=== PATIENT | female | born 1945 | race African-American/Black ===

== ENCOUNTER 2018-12-19 00:50 | Inpatient (IN) | payer MEDICARE, OTHER ==
[2018-12-19] VITALS (8 sets, daily range): BP systolic 136–156; BP diastolic 61–91
[~2018-12-19] VITALS: Ht 175.3 cm; Wt 85.3 kg
[2018-12-19] MEDS ORDERED: CLINDAMYCIN 600 MG in DEXTROSE 5% WATER 50 ML IV ONE (01:30)
[2018-12-19 01:38] LABS: CHLORIDE 107 mEq/L (98-107)
[2018-12-19 01:40] LABS: INR 1.3; PROTHROMBIN TIME 13.2 sec (9.6-11.0)
[2018-12-19] MEDS ORDERED: CLINDAMYCIN 600 MG in SODIUM CHLORIDE 0.9% 50 ML IV NR (01:45)
[2018-12-19 01:48] LABS: BASOPHILS % 0.7 % (0.0-2.0); EOSINOPHILS % 0.6 % (0.0-5.0); HEMATOCRIT. 31.5 % (36.0-48.0); HEMOGLOBIN. 10.3 g/dL (12.0-16.0); LYMPHOCYTES % 11.6 % (20.0-50.0); MEAN CORPUSCULAR HEMOGLOBIN 27.5 pg (28.0-32.0); MEAN CORPUSCULAR VOLUME 83.9 fL (81.0-99.0); MEAN PLATELET VOLUME 8.2 fl (7.4-10.4); MONOCYTES % 13.6 % (2.0-8.0); NEUTROPHILS % 73.5 % (40.0-76.0); PLATELET 212 x1000/uL (130-400); RED BLOOD CELL COUNT 3.75 mill/uL (4.2-5.4); RED CELL DISTRIBUTION WIDTH 16.5 % (11.6-14.6)
[2018-12-19] MEDS ORDERED: IPRATROPIUM/ALBUTEROL 0.5-3(2.5)MG/3ML NEB INH PRN (07:15)
[2018-12-19] MEDS ORDERED: LORAZEPAM 2MG/ML CPJ IV PRN (07:15)
[2018-12-19] MEDS ORDERED: HYDROCODONE/ACETAMINOPHEN 10/325MG TABLET PO PRN (07:15)
[2018-12-19] MEDS ORDERED: MAGNESIUM/ALUMINUM HYDROXIDE/SIMETHICONE 30ML UDC PO PRN (07:15)
[2018-12-19] MEDS ORDERED: DEXTROSE 50% WATER 50ML SYRINGE IV PRN (07:15)
[2018-12-19] MEDS ORDERED: DOCUSATE SODIUM 100MG CAPSULE PO PRN (07:15)
[2018-12-19] MEDS ORDERED: CLONIDINE 0.1MG TABLET PO PRN (07:15)
[2018-12-19] MEDS ORDERED: ONDANSETRON HCL 4MG/2ML INJ IV PRN (07:15)
[2018-12-19] MEDS ORDERED: GUAIFENESIN 200MG/10ML SUGAR FREE UDC PO PRN (07:15)
[2018-12-19] MEDS ORDERED: SODIUM BICARBONATE 4% (2.4MEQ) 5ML VIAL IV ONE (08:57)
[2018-12-19] MEDS ORDERED: HYDRALAZINE 20MG/ML VIAL IV PRN (11:30)
[2018-12-19] MEDS ORDERED: NA PHOS,M-B/NA PHOS,DI-BA ENEMA 118ML PR PRN (12:00)
[2018-12-19] MEDS: BLOOD SUGAR DIAGNOSTIC STRIP TEST SCH ×3 (12:30→21:22)
[2018-12-19] MEDS: INSULIN LISPRO 100 UNITS/ML SUBCUT SCH ×3 (13:00→21:00)
[2018-12-19] MEDS ORDERED: CEPH500C2 MT (13:44)
[2018-12-19] MEDS ORDERED: LISI-604 MT (13:49)
[2018-12-19] MEDS ORDERED: WARF7.5T22 MT (13:57)
[2018-12-19] MEDS: SODIUM CHLORIDE 0.9% INJ 3ML FLUSH IVF SCH ×2 (14:00→21:22)
[2018-12-19] MEDS ORDERED: SIMV40TA2 MT (14:02)
[2018-12-19] MEDS ORDERED: METF-416 MT (14:20)
[2018-12-19] MEDS ORDERED: FURO-151 MT (14:24)
[2018-12-19] MEDS ORDERED: COR25 MT (14:24)
[2018-12-19 17:44] LABS: CREATINE KINASE 65 IU/L (26-192)
[2018-12-19 17:45] LABS: CREATINE KINASE MB FRACTION < 1.0 ng/mL (0.5-3.6)
[2018-12-19] MEDS ORDERED: NON FORMULARY PATIENT HOME MED XX SCH (18:00)
[2018-12-19] MEDS: LISINOPRIL 20MG TABLET PO SCH (18:31)
[2018-12-19] MEDS: FUROSEMIDE 40MG TABLET PO SCH (18:31)
[2018-12-19] MEDS: CARVEDILOL 25MG TABLET PO SCH (21:23)
[2018-12-19] MEDS: ATORVASTATIN CALCIUM 20MG TABLET PO SCH (21:23)
[2018-12-20] VITALS (13 sets, daily range): BP systolic 114–158; BP diastolic 54–79
[2018-12-20 01:58] LABS: CREATINE KINASE 64 IU/L (26-192)
[2018-12-20 01:59] LABS: CREATINE KINASE MB FRACTION < 1.0 ng/mL (0.5-3.6)
[2018-12-20] MEDS: SODIUM CHLORIDE 0.9% INJ 3ML FLUSH IVF SCH ×3 (06:00→21:18)
[2018-12-20 06:56] LABS: BASOPHILS % 0.4 % (0.0-2.0); EOSINOPHILS % 1.2 % (0.0-5.0); HEMATOCRIT. 30.1 % (36.0-48.0); HEMOGLOBIN. 10.1 g/dL (12.0-16.0); LYMPHOCYTES % 14.7 % (20.0-50.0); MEAN CORPUSCULAR HEMOGLOBIN 27.8 pg (28.0-32.0); MEAN PLATELET VOLUME 7.9 fl (7.4-10.4); MONOCYTES % 11.7 % (2.0-8.0); PLATELET 203 x1000/uL (130-400); RED BLOOD CELL COUNT 3.63 mill/uL (4.2-5.4); RED CELL DISTRIBUTION WIDTH 16.2 % (11.6-14.6)
[2018-12-20] MEDS: BLOOD SUGAR DIAGNOSTIC STRIP TEST SCH ×4 (07:30→21:19)
[2018-12-20 07:33] LABS: CHLORIDE 107 mEq/L (98-107)
[2018-12-20 07:56] LABS: OPIATES URINE SCREEN NEGATIVE (NEGATIVE); PHENCYCLIDINE URINE SCREEN NEGATIVE (NEGATIVE)
[2018-12-20 07:57] LABS: *AMPHETAMINES SCREEN URINE NEGATIVE (NEGATIVE); *BARBITURATES SCREEN URINE NEGATIVE (NEGATIVE); *BENZODIAZEPINES SCREEN URINE NEGATIVE (NEGATIVE); *COCAINE SCREEN URINE NEGATIVE (NEGATIVE); CANNABINOID URINE SCREEN NEGATIVE (NEGATIVE)
[2018-12-20 07:58] LABS: LDL CHOLESTEROL 89 mg/dL (5-100)
[2018-12-20 08:00] LABS: T4 FREE 1.13 ng/dL (0.76-1.46)
[2018-12-20] MEDS: INSULIN LISPRO 100 UNITS/ML SUBCUT SCH ×4 (08:00→21:00)
[2018-12-20 08:02] LABS: HDL CHOLESTEROL 45 mg/dL (40-59)
[2018-12-20 08:13] LABS: METHADONE URINE SCREEN NEGATIVE (NEGATIVE)
[2018-12-20] MEDS: CARVEDILOL 25MG TABLET PO SCH ×2 (09:02→21:19)
[2018-12-20] MEDS: FUROSEMIDE 40MG TABLET PO SCH (09:02)
[2018-12-20] MEDS: METFORMIN HCL 500MG TABLET PO SCH (09:02)
[2018-12-20] MEDS: LISINOPRIL 20MG TABLET PO SCH (09:03)
[2018-12-20 11:43] LABS: T4 FREE 1.13 ng/dL (0.76-1.46)
[2018-12-20 16:44] LABS: CREATINE KINASE 70 IU/L (26-192)
[2018-12-20 16:46] LABS: CREATINE KINASE MB FRACTION < 1.0 ng/mL (0.5-3.6)
[2018-12-20] MEDS: ATORVASTATIN CALCIUM 20MG TABLET PO SCH (21:18)
[2018-12-20 23:36] LABS: CREATINE KINASE 68 IU/L (26-192)
[2018-12-20 23:37] LABS: CREATINE KINASE MB FRACTION < 1.0 ng/mL (0.5-3.6)
[2018-12-21] VITALS (13 sets, daily range): BP systolic 106–158; BP diastolic 58–79
[2018-12-21] MEDS: DIPHENHYDRAMINE 50MG/ML VIAL IV PRN (02:11)
[2018-12-21] MEDS: SODIUM CHLORIDE 0.9% INJ 3ML FLUSH IVF SCH ×3 (05:54→20:59)
[2018-12-21 06:28] LABS: BASOPHILS % 0.5 % (0.0-2.0); EOSINOPHILS % 1.7 % (0.0-5.0); HEMATOCRIT. 33.5 % (36.0-48.0); HEMOGLOBIN. 11.1 g/dL (12.0-16.0); LYMPHOCYTES % 15.8 % (20.0-50.0); MEAN CORPUSCULAR HEMOGLOBIN 27.2 pg (28.0-32.0); MEAN CORPUSCULAR VOLUME 82.5 fL (81.0-99.0); MEAN PLATELET VOLUME 7.9 fl (7.4-10.4); MONOCYTES % 11.9 % (2.0-8.0); NEUTROPHILS % 70.1 % (40.0-76.0); PLATELET 254 x1000/uL (130-400); RED BLOOD CELL COUNT 4.06 mill/uL (4.2-5.4); RED CELL DISTRIBUTION WIDTH 15.6 % (11.6-14.6)
[2018-12-21 06:30] LABS: CHLORIDE 104 mEq/L (98-107)
[2018-12-21 07:01] LABS: CREATINE KINASE 79 IU/L (26-192)
[2018-12-21 07:03] LABS: CREATINE KINASE MB FRACTION 1.2 ng/mL (0.5-3.6)
[2018-12-21] MEDS: BLOOD SUGAR DIAGNOSTIC STRIP TEST SCH ×4 (07:29→20:58)
[2018-12-21] MEDS: INSULIN LISPRO 100 UNITS/ML SUBCUT SCH ×4 (08:00→20:58)
[2018-12-21] MEDS: LISINOPRIL 20MG TABLET PO SCH (08:57)
[2018-12-21] MEDS: METFORMIN HCL 500MG TABLET PO SCH (08:57)
[2018-12-21] MEDS: FUROSEMIDE 40MG TABLET PO SCH (08:57)
[2018-12-21] MEDS: CARVEDILOL 25MG TABLET PO SCH ×2 (08:58→20:58)
[2018-12-21] MEDS: ENOXAPARIN 100MG/ML SYR SUBCUT SCH ×2 (12:26→21:00)
[2018-12-21 12:27] LABS: INR 1.5; PROTHROMBIN TIME 15.4 sec (9.6-11.0)
[2018-12-21] MEDS: HYDROMORPHONE HCL/PF 2MG/ML CPJ IV PRN (14:16)
[2018-12-21] MEDS ORDERED: WARFARIN SODIUM 2.5MG TABLET PO SCH (18:00)
[2018-12-21] MEDS: ATORVASTATIN CALCIUM 20MG TABLET PO SCH (20:58)
[2018-12-22] VITALS (12 sets, daily range): BP systolic 92–151; BP diastolic 55–95
[2018-12-22] MEDS: ACETAMINOPHEN 325MG TABLET PO PRN ×2 (01:15→21:40)
[2018-12-22] MEDS: HYDROMORPHONE HCL/PF 2MG/ML CPJ IV PRN (03:21)
[2018-12-22] MEDS: SODIUM CHLORIDE 0.9% INJ 3ML FLUSH IVF SCH ×3 (06:00→21:45)
[2018-12-22 06:19] LABS: HEMATOCRIT. 32.3 % (36.0-48.0); HEMOGLOBIN. 10.9 g/dL (12.0-16.0); MEAN CORPUSCULAR HEMOGLOBIN 27.7 pg (28.0-32.0); MEAN CORPUSCULAR VOLUME 82.2 fL (81.0-99.0); PLATELET 270 x1000/uL (130-400); RED BLOOD CELL COUNT 3.93 mill/uL (4.2-5.4); RED CELL DISTRIBUTION WIDTH 15.9 % (11.6-14.6)
[2018-12-22 06:23] LABS: INR 1.7
[2018-12-22 06:30] LABS: CHLORIDE 104 mEq/L (98-107)
[2018-12-22] MEDS: INSULIN LISPRO 100 UNITS/ML SUBCUT SCH ×4 (08:00→21:00)
[2018-12-22 08:11] LABS: PLATELET ESTIMATE NORMAL
[2018-12-22] MEDS: BLOOD SUGAR DIAGNOSTIC STRIP TEST SCH ×4 (08:23→21:41)
[2018-12-22] MEDS: FUROSEMIDE 40MG TABLET PO SCH (09:00)
[2018-12-22] MEDS: LISINOPRIL 20MG TABLET PO SCH (09:00)
[2018-12-22] MEDS ORDERED: WARFARIN SODIUM 2.5MG TABLET PO ONE (09:00)
[2018-12-22] MEDS: METFORMIN HCL 500MG TABLET PO SCH (09:00)
[2018-12-22] MEDS: ENOXAPARIN 100MG/ML SYR SUBCUT SCH ×2 (10:00→23:23)
[2018-12-22] MEDS: CARVEDILOL 25MG TABLET PO SCH ×2 (10:22→21:40)
[2018-12-22] MEDS ORDERED: KCL 20MEQ/100ML PREMIX 100 ML IV NR (11:30)
[2018-12-22] MEDS ORDERED: WARFARIN SODIUM 4MG TABLET PO NR (18:00)
[2018-12-22] MEDS: ATORVASTATIN CALCIUM 20MG TABLET PO SCH (21:40)
[2018-12-23] VITALS (12 sets, daily range): BP systolic 95–137; BP diastolic 46–106
[2018-12-23 05:50] LABS: PROTHROMBIN TIME 19.9 sec (9.6-11.0)
[2018-12-23 06:01] LABS: HEMATOCRIT. 33.1 % (36.0-48.0); MEAN CORPUSCULAR HEMOGLOBIN 27.6 pg (28.0-32.0); MEAN CORPUSCULAR VOLUME 83.1 fL (81.0-99.0); MEAN PLATELET VOLUME 7.9 fl (7.4-10.4); PLATELET 269 x1000/uL (130-400); RED BLOOD CELL COUNT 3.98 mill/uL (4.2-5.4); RED CELL DISTRIBUTION WIDTH 15.8 % (11.6-14.6)
[2018-12-23 06:10] LABS: CHLORIDE 106 mEq/L (98-107)
[2018-12-23] MEDS: SODIUM CHLORIDE 0.9% INJ 3ML FLUSH IVF SCH ×3 (06:38→22:11)
[2018-12-23] MEDS: ACETAMINOPHEN 325MG TABLET PO PRN ×2 (06:53→20:24)
[2018-12-23] MEDS: BLOOD SUGAR DIAGNOSTIC STRIP TEST SCH ×4 (07:53→20:24)
[2018-12-23] MEDS: INSULIN LISPRO 100 UNITS/ML SUBCUT SCH ×4 (07:54→20:24)
[2018-12-23] MEDS: METFORMIN HCL 500MG TABLET PO SCH (08:14)
[2018-12-23] MEDS: CARVEDILOL 25MG TABLET PO SCH ×2 (08:15→20:24)
[2018-12-23] MEDS: FUROSEMIDE 40MG TABLET PO SCH (08:15)
[2018-12-23] MEDS: LISINOPRIL 20MG TABLET PO SCH (08:16)
[2018-12-23] MEDS ORDERED: POTASSIUM CHLORIDE 20MEQ/PACKET PO NR (09:00)
[2018-12-23] MEDS: ENOXAPARIN 100MG/ML SYR SUBCUT SCH ×2 (10:16→22:11)
[2018-12-23] MEDS ORDERED: WARFARIN SODIUM 4MG TABLET PO NR (18:00)
[2018-12-23] MEDS: ATORVASTATIN CALCIUM 20MG TABLET PO SCH (20:24)
[2018-12-24] VITALS (13 sets, daily range): BP systolic 93–134; BP diastolic 49–74
[2018-12-24] MEDS: DIPHENHYDRAMINE 50MG/ML VIAL IV PRN (02:25)
[2018-12-24] MEDS: HYDROMORPHONE HCL/PF 2MG/ML CPJ IV PRN ×2 (03:00→07:16)
[2018-12-24 04:16] LABS: PLATELET ESTIMATE NORMAL
[2018-12-24] MEDS: SODIUM CHLORIDE 0.9% INJ 3ML FLUSH IVF SCH ×3 (05:56→21:22)
[2018-12-24 06:07] LABS: HEMOGLOBIN. 11.2 g/dL (12.0-16.0); MEAN CORPUSCULAR HEMOGLOBIN 27.9 pg (28.0-32.0); MEAN CORPUSCULAR VOLUME 82.6 fL (81.0-99.0); MEAN PLATELET VOLUME 8.1 fl (7.4-10.4); PLATELET 298 x1000/uL (130-400); RED BLOOD CELL COUNT 3.99 mill/uL (4.2-5.4); RED CELL DISTRIBUTION WIDTH 16.2 % (11.6-14.6)
[2018-12-24 06:29] LABS: CHLORIDE 106 mEq/L (98-107)
[2018-12-24 06:36] LABS: INR 2.2; PROTHROMBIN TIME 21.8 sec (9.6-11.0)
[2018-12-24] MEDS: BLOOD SUGAR DIAGNOSTIC STRIP TEST SCH ×4 (07:30→20:09)
[2018-12-24] MEDS: INSULIN LISPRO 100 UNITS/ML SUBCUT SCH ×4 (08:00→20:10)
[2018-12-24] MEDS: LISINOPRIL 20MG TABLET PO SCH (09:00)
[2018-12-24] MEDS: METFORMIN HCL 500MG TABLET PO SCH (09:17)
[2018-12-24] MEDS: FUROSEMIDE 40MG TABLET PO SCH (09:18)
[2018-12-24] MEDS: CARVEDILOL 25MG TABLET PO SCH ×2 (09:26→20:53)
[2018-12-24] MEDS: ENOXAPARIN 100MG/ML SYR SUBCUT SCH ×2 (09:26→21:22)
[2018-12-24 11:33] LABS: PLATELET ESTIMATE NORMAL
[2018-12-24] MEDS ORDERED: WARFARIN SODIUM 4MG TABLET PO NR (18:00)
[2018-12-24] MEDS: ATORVASTATIN CALCIUM 20MG TABLET PO SCH (20:53)
[2018-12-24] MEDS: ACETAMINOPHEN 325MG TABLET PO PRN (20:54)
[2018-12-24] MEDS: DEXT 5%/0.45% NACL 1000ML 1,000 ML IV SCH (21:22)
[2018-12-25] VITALS (18 sets, daily range): BP systolic 91–142; BP diastolic 50–95
[2018-12-25] MEDS: SODIUM CHLORIDE 0.9% INJ 3ML FLUSH IVF SCH ×3 (05:11→21:28)
[2018-12-25 05:43] LABS: INR 1.9
[2018-12-25] MEDS: BLOOD SUGAR DIAGNOSTIC STRIP TEST SCH ×4 (06:51→20:30)
[2018-12-25] MEDS: INSULIN LISPRO 100 UNITS/ML SUBCUT SCH ×4 (07:20→20:30)
[2018-12-25] MEDS: FUROSEMIDE 40MG TABLET PO SCH (09:00)
[2018-12-25] MEDS: LISINOPRIL 20MG TABLET PO SCH (09:00)
[2018-12-25] MEDS: METFORMIN HCL 500MG TABLET PO SCH (09:00)
[2018-12-25] MEDS: CARVEDILOL 25MG TABLET PO SCH ×2 (09:00→20:29)
[2018-12-25] MEDS: ENOXAPARIN 100MG/ML SYR SUBCUT SCH ×2 (10:00→21:27)
[2018-12-25] MEDS ORDERED: MIDAZOLAM HCL 2 MG/2 ML VIAL ONE ×2 (10:50→11:33)
[2018-12-25] MEDS ORDERED: LIDOCAINE HCL 2% JELLY 5ML ONE (10:50)
[2018-12-25] MEDS ORDERED: FENTANYL CITRATE/PF 50MCG/ML 2ML VIAL ONE (10:50)
[2018-12-25] MEDS ORDERED: TETRACAINE/BENZOCAINE/BUTAMBEN 20 GM SPRAY MM ONE (10:51)
[2018-12-25] MEDS: DEXT 5%/0.45% NACL 1000ML 1,000 ML IV SCH (17:15)
[2018-12-25] MEDS ORDERED: WARFARIN SODIUM 3MG TABLET PO SCH (18:00)
[2018-12-25] MEDS: ACETAMINOPHEN 325MG TABLET PO PRN (18:13)
[2018-12-25] MEDS: ATORVASTATIN CALCIUM 20MG TABLET PO SCH (20:30)
[2018-12-26] VITALS (19 sets, daily range): BP systolic 104–135; BP diastolic 48–85
[2018-12-26] MEDS: ACETAMINOPHEN 325MG TABLET PO PRN (03:43)
[2018-12-26 05:14] LABS: INR 3.3; PROTHROMBIN TIME 32.3 sec (9.6-11.0)
[2018-12-26] MEDS: SODIUM CHLORIDE 0.9% INJ 3ML FLUSH IVF SCH (05:19)
[2018-12-26 05:21] LABS: HEMATOCRIT. 32.4 % (36.0-48.0); MEAN CORPUSCULAR HEMOGLOBIN 27.6 pg (28.0-32.0); MEAN CORPUSCULAR VOLUME 81.5 fL (81.0-99.0); MEAN PLATELET VOLUME 7.8 fl (7.4-10.4); PLATELET 321 x1000/uL (130-400); RED BLOOD CELL COUNT 3.97 mill/uL (4.2-5.4); RED CELL DISTRIBUTION WIDTH 16.1 % (11.6-14.6)
[2018-12-26 05:49] LABS: CHLORIDE 106 mEq/L (98-107)
[2018-12-26 07:04] LABS: PLATELET ESTIMATE NORMAL
[2018-12-26] MEDS: BLOOD SUGAR DIAGNOSTIC STRIP TEST SCH ×2 (07:30→12:27)
[2018-12-26] MEDS: METFORMIN HCL 500MG TABLET PO SCH (09:09)
[2018-12-26] MEDS: FUROSEMIDE 40MG TABLET PO SCH (09:10)
[2018-12-26] MEDS: LISINOPRIL 20MG TABLET PO SCH (09:10)
[2018-12-26] MEDS: CARVEDILOL 25MG TABLET PO SCH (09:11)
[2018-12-26] MEDS: INSULIN LISPRO 100 UNITS/ML SUBCUT SCH ×3 (09:16→13:00)
[2018-12-26] MEDS: ENOXAPARIN 100MG/ML SYR SUBCUT SCH (09:20)
[2018-12-26] MEDS ORDERED: HYDROCODONE/ACETAMINOPHEN 10/325MG TABLET PO PRN (09:30)
[2018-12-26] MEDS ORDERED: POTASSIUM CHLORIDE 20MEQ TABLET SR PO NR (10:30)
== END 2018-12-26 14:45 | DRG 64 ==
LOC: ER 00:50 → 5EST 02:40 → EDBEDREQTM 02:42 → EDBEDREQ 02:42 → ENRESERV 10:34 → UNDODISIN 12-26 14:57
PROVIDERS: ADMIT Internal Medicine; ATTEND Internal Medicine
PROC: 4A00X4Z Measurement of Central Nervous Electrical Activity, External Approach (ICD-10-PCS; 2018-12-23)
PROC: B24BZZ4 Ultrasonography of Heart with Aorta, Transesophageal (ICD-10-PCS; principal; 2018-12-25)
DX: I63.9 Cerebral infarction, unspecified (principal); G93.41 Metabolic encephalopathy; R65.10 Systemic inflammatory response syndrome (SIRS) of non-infectious origin without acute organ dysfunction; E46 Unspecified protein-calorie malnutrition; I50.42 Chronic combined systolic (congestive) and diastolic (congestive) heart failure; L03.115 Cellulitis of right lower limb; I42.9 Cardiomyopathy, unspecified; L97.919 Non-pressure chronic ulcer of unspecified part of right lower leg with unspecified severity; G81.91 Hemiplegia, unspecified affecting right dominant side; E86.0 Dehydration; E11.9 Type 2 diabetes mellitus without complications; R47.02 Dysphasia; I48.91 Unspecified atrial fibrillation; I11.0 Hypertensive heart disease with heart failure; D64.9 Anemia, unspecified; E11.51 Type 2 diabetes mellitus with diabetic peripheral angiopathy without gangrene; E78.00 Pure hypercholesterolemia, unspecified; E78.5 Hyperlipidemia, unspecified; I70.8 Atherosclerosis of other arteries; I07.1 Rheumatic tricuspid insufficiency; I25.10 Atherosclerotic heart disease of native coronary artery without angina pectoris; I27.20 Pulmonary hypertension, unspecified; R47.01 Aphasia; Z79.01 Long term (current) use of anticoagulants; Z79.84 Long term (current) use of oral hypoglycemic drugs; Z79.899 Other long term (current) drug therapy; Z95.1 Presence of aortocoronary bypass graft; Z95.2 Presence of prosthetic heart valve; Z68.27 Body mass index [BMI] 27.0-27.9, adult
CPT/HCPCS: 36415; 70551; 71045; 80048; 80061; 80305; 82550; 82553; 82962; 83036; 83605; 83721; 83880; 84439; 84443; 84484; 85379; 92610; 93005; 93306; 93312; 93880; 93923; 93970; 96365; 97110; 97162; 97530; 99291; J1170; J1200; J1650; J1815; J2250; J3010; J3480; J3490; J7040; J7042; J7050; J7060; A4315

== ENCOUNTER 2018-12-26 14:46 | Inpatient (IN) | payer MEDICARE, OTHER ==
[~2018-12-26] VITALS: Ht 175.3 cm; Wt 83.5 kg
[2018-12-26 14:46] VITALS: BP 107/52
[~2018-12-26 14:46] MED LIST: COR25 MT; FURO-151 MT; LISI-604 MT; METF-416 MT; SIMV40TA2 MT; WARF7.5T22 MT
[2018-12-26 15:00] VITALS: BP 107/52
[2018-12-26] MEDS ORDERED: BISACODYL 5MG TABLET PO PRN (16:15)
[2018-12-26] MEDS ORDERED: IPRATROPIUM/ALBUTEROL 0.5-3(2.5)MG/3ML NEB HHN PRN (16:45)
[2018-12-26] MEDS ORDERED: GUAIFENESIN 200MG TABLET PO PRN (16:45)
[2018-12-26] MEDS ORDERED: DIPHENHYDRAMINE 50MG CAPSULE PO PRN ×2 (16:45→22:45)
[2018-12-26] MEDS ORDERED: DEXTROSE 50% WATER 50ML SYRINGE IV PRN ×2 (16:45→17:00)
[2018-12-26] MEDS ORDERED: CLONIDINE 0.1MG TABLET PO PRN (16:45)
[2018-12-26] MEDS ORDERED: MAGNESIUM/ALUMINUM HYDROXIDE/SIMETHICONE 30ML UDC PO PRN (16:45)
[2018-12-26] MEDS ORDERED: HYDRALAZINE HCL 10MG TABLET PO PRN (16:56)
[2018-12-26] MEDS: DOCUSATE SODIUM 100MG CAPSULE PO SCH ×2 (17:00→18:38)
[2018-12-26] MEDS: INSULIN LISPRO 100 UNITS/ML SUBCUT SCH ×2 (17:00→21:00)
[2018-12-26] MEDS: BLOOD SUGAR DIAGNOSTIC STRIP TEST SCH ×2 (17:33→21:00)
[2018-12-26 20:00] VITALS: BP 125/67
[2018-12-26] MEDS: ATORVASTATIN CALCIUM 20MG TABLET PO SCH (20:37)
[2018-12-26] MEDS: ONDANSETRON HCL 4MG TABLET PO PRN (20:37)
[2018-12-26] MEDS: HYDROCODONE/ACETAMINOPHEN 10/325MG TABLET PO PRN (20:42)
[2018-12-26] MEDS: CARVEDILOL 25MG TABLET PO SCH (20:43)
[2018-12-26] MEDS ORDERED: NA PHOS,M-B/NA PHOS,DI-BA ENEMA 118ML PR PRN (21:00)
[2018-12-27 04:00] VITALS: BP 117/67
[2018-12-27] MEDS: HYDROCODONE/ACETAMINOPHEN 10/325MG TABLET PO PRN (04:36)
[2018-12-27] MEDS: BLOOD SUGAR DIAGNOSTIC STRIP TEST SCH ×4 (06:30→21:17)
[2018-12-27 08:00] VITALS: BP 102/66
[2018-12-27] MEDS: CARVEDILOL 25MG TABLET PO SCH ×2 (09:00→21:00)
[2018-12-27] MEDS: INSULIN LISPRO 100 UNITS/ML SUBCUT SCH ×4 (09:00→21:00)
[2018-12-27] MEDS: LISINOPRIL 20MG TABLET PO SCH (09:00)
[2018-12-27] MEDS ORDERED: METFORMIN HCL 500MG TABLET PO SCH (09:00)
[2018-12-27] MEDS: METFORMIN HCL 500MG TABLET PO SCH (10:18)
[2018-12-27] MEDS: FUROSEMIDE 40MG TABLET PO SCH (10:18)
[2018-12-27] MEDS: DOCUSATE SODIUM 100MG CAPSULE PO SCH ×3 (10:18→18:15)
[2018-12-27 13:01] LABS: INR 3.7; PROTHROMBIN TIME 36.4 sec (9.6-11.0)
[2018-12-27] MEDS: AMOXICILLIN/POTASSIUM CLAVULANATE 875/125MG TAB PO SCH ×2 (18:15→22:34)
[2018-12-27 20:00] VITALS: BP 98/60
[2018-12-27] MEDS: ATORVASTATIN CALCIUM 20MG TABLET PO SCH (21:16)
[2018-12-27] MEDS: ACETAMINOPHEN 325MG TABLET PO PRN (22:07)
[2018-12-28] MEDS: ACETAMINOPHEN 325MG TABLET PO PRN (04:01)
[2018-12-28] MEDS: BLOOD SUGAR DIAGNOSTIC STRIP TEST SCH ×4 (06:41→21:19)
[2018-12-28] MEDS: INSULIN LISPRO 100 UNITS/ML SUBCUT SCH ×4 (06:41→21:00)
[2018-12-28 06:44] LABS: INR 3.3; PROTHROMBIN TIME 32.8 sec (9.6-11.0)
[2018-12-28 08:00] VITALS: BP 106/56
[2018-12-28] MEDS: LISINOPRIL 20MG TABLET PO SCH (09:00)
[2018-12-28] MEDS: DOCUSATE SODIUM 100MG CAPSULE PO SCH ×4 (09:00→16:49)
[2018-12-28] MEDS: CARVEDILOL 25MG TABLET PO SCH ×2 (09:00→21:00)
[2018-12-28] MEDS: AMOXICILLIN/POTASSIUM CLAVULANATE 875/125MG TAB PO SCH ×2 (09:47→21:49)
[2018-12-28] MEDS: METFORMIN HCL 500MG TABLET PO SCH (09:47)
[2018-12-28] MEDS: FUROSEMIDE 40MG TABLET PO SCH (09:48)
[2018-12-28 20:00] VITALS: BP 102/62
[2018-12-28] MEDS: ATORVASTATIN CALCIUM 20MG TABLET PO SCH (21:49)
[2018-12-29] MEDS: BLOOD SUGAR DIAGNOSTIC STRIP TEST SCH ×4 (06:00→21:32)
[2018-12-29] MEDS: INSULIN LISPRO 100 UNITS/ML SUBCUT SCH ×4 (06:23→21:00)
[2018-12-29 08:00] VITALS: BP 98/64
[2018-12-29] MEDS: CARVEDILOL 25MG TABLET PO SCH (08:08)
[2018-12-29] MEDS: LISINOPRIL 20MG TABLET PO SCH (08:09)
[2018-12-29] MEDS: AMOXICILLIN/POTASSIUM CLAVULANATE 875/125MG TAB PO SCH ×2 (08:30→21:32)
[2018-12-29] MEDS: DOCUSATE SODIUM 100MG CAPSULE PO SCH ×2 (08:30→17:20)
[2018-12-29] MEDS: METFORMIN HCL 500MG TABLET PO SCH (08:30)
[2018-12-29] MEDS: FUROSEMIDE 40MG TABLET PO SCH (10:06)
[2018-12-29] MEDS: ONDANSETRON HCL 4MG TABLET PO PRN (11:06)
[2018-12-29 13:41] LABS: INR 2.2; PROTHROMBIN TIME 22.2 sec (9.6-11.0)
[2018-12-29] MEDS ORDERED: WARFARIN SODIUM 3MG TABLET PO NR (18:00)
[2018-12-29 20:00] VITALS: BP 105/73
[2018-12-29] MEDS: CARVEDILOL 12.5MG TABLET PO SCH (21:00)
[2018-12-29] MEDS: ATORVASTATIN CALCIUM 20MG TABLET PO SCH (21:32)
[2018-12-30] MEDS: ACETAMINOPHEN 325MG TABLET PO PRN (04:06)
[2018-12-30] MEDS: BLOOD SUGAR DIAGNOSTIC STRIP TEST SCH ×4 (07:20→21:25)
[2018-12-30] MEDS: INSULIN LISPRO 100 UNITS/ML SUBCUT SCH ×4 (07:20→21:00)
[2018-12-30 07:31] LABS: INR 2.2; PROTHROMBIN TIME 22.2 sec (9.6-11.0)
[2018-12-30 08:54] VITALS: BP 115/63
[2018-12-30] MEDS: CARVEDILOL 12.5MG TABLET PO SCH ×2 (09:00→21:00)
[2018-12-30] MEDS: LISINOPRIL 10MG TABLET PO SCH (10:40)
[2018-12-30] MEDS: DOCUSATE SODIUM 100MG CAPSULE PO SCH ×2 (10:40→17:00)
[2018-12-30] MEDS: FUROSEMIDE 20MG TABLET PO SCH (10:40)
[2018-12-30] MEDS: AMOXICILLIN/POTASSIUM CLAVULANATE 875/125MG TAB PO SCH ×2 (10:40→21:03)
[2018-12-30] MEDS: METFORMIN HCL 500MG TABLET PO SCH (10:40)
[2018-12-30] MEDS ORDERED: WARFARIN SODIUM 3MG TABLET PO SCH (18:00)
[2018-12-30 20:00] VITALS: BP 97/66
[2018-12-30] MEDS: ATORVASTATIN CALCIUM 20MG TABLET PO SCH (21:03)
[2018-12-30] MEDS: HYDROCODONE/ACETAMINOPHEN 10/325MG TABLET PO PRN (21:04)
[2018-12-31] MEDS: BLOOD SUGAR DIAGNOSTIC STRIP TEST SCH ×4 (06:06→21:00)
[2018-12-31 06:45] LABS: INR 2.6; PROTHROMBIN TIME 25.4 sec (9.6-11.0)
[2018-12-31 06:49] LABS: CHLORIDE 111 mEq/L (98-107)
[2018-12-31 06:56] LABS: BASOPHILS % 0.3 % (0.0-2.0); EOSINOPHILS % 2.6 % (0.0-5.0); HEMATOCRIT. 31.9 % (36.0-48.0); HEMOGLOBIN. 10.5 g/dL (12.0-16.0); LYMPHOCYTES % 26.1 % (20.0-50.0); MEAN CORPUSCULAR HEMOGLOBIN 27.3 pg (28.0-32.0); MEAN CORPUSCULAR VOLUME 82.5 fL (81.0-99.0); MEAN PLATELET VOLUME 7.5 fl (7.4-10.4); MONOCYTES % 11.3 % (2.0-8.0); NEUTROPHILS % 59.7 % (40.0-76.0); PLATELET 361 x1000/uL (130-400); RED BLOOD CELL COUNT 3.86 mill/uL (4.2-5.4)
[2018-12-31 08:00] VITALS: BP 101/58
[2018-12-31] MEDS: CARVEDILOL 12.5MG TABLET PO SCH ×2 (09:00→23:02)
[2018-12-31] MEDS: LISINOPRIL 10MG TABLET PO SCH (09:00)
[2018-12-31] MEDS: INSULIN LISPRO 100 UNITS/ML SUBCUT SCH ×4 (09:00→21:00)
[2018-12-31] MEDS: HYDROCODONE/ACETAMINOPHEN 10/325MG TABLET PO PRN (09:45)
[2018-12-31] MEDS: METFORMIN HCL 500MG TABLET PO SCH (09:46)
[2018-12-31] MEDS: AMOXICILLIN/POTASSIUM CLAVULANATE 875/125MG TAB PO SCH ×2 (09:46→23:02)
[2018-12-31] MEDS: DOCUSATE SODIUM 100MG CAPSULE PO SCH ×2 (09:46→17:47)
[2018-12-31] MEDS: FUROSEMIDE 20MG TABLET PO SCH (09:47)
[2018-12-31] MEDS ORDERED: WARFARIN SODIUM 3MG TABLET PO SCH (18:00)
[2018-12-31 20:00] VITALS: BP 118/70
[2018-12-31] MEDS: ATORVASTATIN CALCIUM 20MG TABLET PO SCH (23:03)
[2019-01-01] MEDS: INSULIN LISPRO 100 UNITS/ML SUBCUT SCH ×4 (05:18→21:00)
[2019-01-01] MEDS: BLOOD SUGAR DIAGNOSTIC STRIP TEST SCH ×4 (05:19→21:13)
[2019-01-01 07:10] LABS: INR 2.6
[2019-01-01 08:00] VITALS: BP 141/66
[2019-01-01] MEDS: AMOXICILLIN/POTASSIUM CLAVULANATE 875/125MG TAB PO SCH ×2 (08:28→21:13)
[2019-01-01] MEDS: ACETAMINOPHEN 325MG TABLET PO PRN (08:29)
[2019-01-01] MEDS: METFORMIN HCL 500MG TABLET PO SCH (08:29)
[2019-01-01] MEDS: DOCUSATE SODIUM 100MG CAPSULE PO SCH ×2 (08:30→17:00)
[2019-01-01] MEDS: FUROSEMIDE 20MG TABLET PO SCH (08:30)
[2019-01-01] MEDS: CARVEDILOL 12.5MG TABLET PO SCH ×2 (08:30→21:13)
[2019-01-01] MEDS: LISINOPRIL 10MG TABLET PO SCH (08:30)
[2019-01-01] MEDS ORDERED: IOHEXOL-350 100 ML BOTTLE ONE (16:38)
[2019-01-01] MEDS ORDERED: WARFARIN SODIUM 3MG TABLET PO SCH (18:00)
[2019-01-01 20:00] VITALS: BP 136/66
[2019-01-01] MEDS: ATORVASTATIN CALCIUM 20MG TABLET PO SCH (21:12)
[2019-01-02 06:32] LABS: INR 2.5; PROTHROMBIN TIME 24.2 sec (9.6-11.0)
[2019-01-02] MEDS: BLOOD SUGAR DIAGNOSTIC STRIP TEST SCH ×4 (06:41→21:05)
[2019-01-02] MEDS: INSULIN LISPRO 100 UNITS/ML SUBCUT SCH ×4 (06:41→21:00)
[2019-01-02] MEDS: ACETAMINOPHEN 325MG TABLET PO PRN ×2 (06:50→17:02)
[2019-01-02] MEDS: CARVEDILOL 12.5MG TABLET PO SCH ×2 (08:07→21:04)
[2019-01-02] MEDS: LISINOPRIL 10MG TABLET PO SCH (08:08)
[2019-01-02 08:19] VITALS: BP 106/63
[2019-01-02] MEDS: DOCUSATE SODIUM 100MG CAPSULE PO SCH ×2 (10:22→16:42)
[2019-01-02] MEDS: FUROSEMIDE 20MG TABLET PO SCH (10:23)
[2019-01-02] MEDS: AMOXICILLIN/POTASSIUM CLAVULANATE 875/125MG TAB PO SCH ×2 (10:23→21:03)
[2019-01-02] MEDS: METFORMIN HCL 500MG TABLET PO SCH (10:23)
[2019-01-02] MEDS ORDERED: WARFARIN SODIUM 3MG TABLET PO NR (18:00)
[2019-01-02 20:00] VITALS: BP 88/53
[2019-01-02 21:00] VITALS: BP 110/60
[2019-01-02] MEDS: ATORVASTATIN CALCIUM 20MG TABLET PO SCH (21:03)
[2019-01-02 23:30] VITALS: BP 117/54
[2019-01-03] MEDS: ACETAMINOPHEN 325MG TABLET PO PRN (04:04)
[2019-01-03] MEDS: INSULIN LISPRO 100 UNITS/ML SUBCUT SCH ×4 (05:43→21:00)
[2019-01-03] MEDS: BLOOD SUGAR DIAGNOSTIC STRIP TEST SCH ×4 (05:43→21:09)
[2019-01-03 06:45] LABS: INR 2.2; PROTHROMBIN TIME 22.1 sec (9.6-11.0)
[2019-01-03] MEDS: AMOXICILLIN/POTASSIUM CLAVULANATE 875/125MG TAB PO SCH (08:46)
[2019-01-03] MEDS: FUROSEMIDE 20MG TABLET PO SCH (08:46)
[2019-01-03] MEDS: METFORMIN HCL 500MG TABLET PO SCH (08:46)
[2019-01-03] MEDS: CARVEDILOL 12.5MG TABLET PO SCH ×2 (08:47→21:09)
[2019-01-03] MEDS: DOCUSATE SODIUM 100MG CAPSULE PO SCH ×2 (08:47→16:22)
[2019-01-03] MEDS: LISINOPRIL 10MG TABLET PO SCH (08:47)
[2019-01-03] MEDS: HYDROCODONE/ACETAMINOPHEN 5/325MG TABLET PO PRN ×4 (08:50→21:58)
[2019-01-03 08:57] VITALS: BP 107/57
[2019-01-03] MEDS: LEVOFLOXACIN 250MG TABLET PO SCH (11:38)
[2019-01-03] MEDS ORDERED: IOHEXOL-350 100 ML BOTTLE ONE (17:18)
[2019-01-03] MEDS ORDERED: WARFARIN SODIUM 3MG TABLET PO SCH (18:00)
[2019-01-03 20:00] VITALS: BP 114/81
[2019-01-03] MEDS: ATORVASTATIN CALCIUM 20MG TABLET PO SCH (21:09)
[2019-01-04] MEDS: HYDROCODONE/ACETAMINOPHEN 5/325MG TABLET PO PRN ×4 (04:46→21:59)
[2019-01-04] MEDS: BLOOD SUGAR DIAGNOSTIC STRIP TEST SCH ×4 (06:04→21:27)
[2019-01-04] MEDS: INSULIN LISPRO 100 UNITS/ML SUBCUT SCH ×4 (06:16→21:00)
[2019-01-04 07:24] LABS: INR 2.4; PROTHROMBIN TIME 23.4 sec (9.6-11.0)
[2019-01-04 07:25] LABS: BASOPHILS % 0.4 % (0.0-2.0); HEMATOCRIT. 33.7 % (36.0-48.0); LYMPHOCYTES % 21.5 % (20.0-50.0); MEAN CORPUSCULAR HEMOGLOBIN 26.8 pg (28.0-32.0); MEAN CORPUSCULAR VOLUME 82.2 fL (81.0-99.0); MEAN PLATELET VOLUME 7.8 fl (7.4-10.4); MONOCYTES % 11.2 % (2.0-8.0); NEUTROPHILS % 64.9 % (40.0-76.0); PLATELET 363 x1000/uL (130-400); RED CELL DISTRIBUTION WIDTH 16.3 % (11.6-14.6)
[2019-01-04 08:00] VITALS: BP 139/74
[2019-01-04] MEDS: FUROSEMIDE 20MG TABLET PO SCH (09:00)
[2019-01-04] MEDS: LISINOPRIL 10MG TABLET PO SCH (10:48)
[2019-01-04] MEDS: DOCUSATE SODIUM 100MG CAPSULE PO SCH ×2 (10:48→18:02)
[2019-01-04] MEDS: CARVEDILOL 12.5MG TABLET PO SCH ×2 (10:49→20:52)
[2019-01-04] MEDS: METFORMIN HCL 500MG TABLET PO SCH (10:49)
[2019-01-04] MEDS: LEVOFLOXACIN 250MG TABLET PO SCH (11:00)
[2019-01-04] MEDS ORDERED: WARFARIN SODIUM 5MG TABLET PO SCH (18:00)
[2019-01-04 19:50] VITALS: BP 103/62
[2019-01-04] MEDS: ATORVASTATIN CALCIUM 20MG TABLET PO SCH (20:52)
[2019-01-05] MEDS: INSULIN LISPRO 100 UNITS/ML SUBCUT SCH ×2 (06:14→12:09)
[2019-01-05] MEDS: BLOOD SUGAR DIAGNOSTIC STRIP TEST SCH ×2 (06:14→11:46)
[2019-01-05 07:21] LABS: INR 2.6; PROTHROMBIN TIME 25.6 sec (9.6-11.0)
[2019-01-05 08:40] VITALS: BP 121/63
[2019-01-05] MEDS: LISINOPRIL 10MG TABLET PO SCH (08:43)
[2019-01-05] MEDS: METFORMIN HCL 500MG TABLET PO SCH (08:43)
[2019-01-05] MEDS: DOCUSATE SODIUM 100MG CAPSULE PO SCH (08:43)
[2019-01-05] MEDS: CARVEDILOL 12.5MG TABLET PO SCH (08:44)
[2019-01-05] MEDS: FUROSEMIDE 20MG TABLET PO SCH (08:44)
[2019-01-05] MEDS: ACETAMINOPHEN 325MG TABLET PO PRN (09:43)
[2019-01-05 12:15] VITALS: BP 121/63
[2019-01-05] MEDS ORDERED: WARFARIN SODIUM 5MG TABLET PO NR (18:00)
== END 2019-01-05 16:46 | disposition home health service (06) | DRG 56 ==
PROVIDERS: ADMIT Psychiatry & Neurology Neurology; ATTEND Internal Medicine
DX: I69.351 Hemiplegia and hemiparesis following cerebral infarction affecting right dominant side (principal); G93.41 Metabolic encephalopathy; I63.9 Cerebral infarction, unspecified; E46 Unspecified protein-calorie malnutrition; I42.9 Cardiomyopathy, unspecified; I50.40 Unspecified combined systolic (congestive) and diastolic (congestive) heart failure; L03.115 Cellulitis of right lower limb; L97.919 Non-pressure chronic ulcer of unspecified part of right lower leg with unspecified severity; R65.10 Systemic inflammatory response syndrome (SIRS) of non-infectious origin without acute organ dysfunction; E78.5 Hyperlipidemia, unspecified; I11.0 Hypertensive heart disease with heart failure; D64.9 Anemia, unspecified; F01.50 Vascular dementia, unspecified severity, without behavioral disturbance, psychotic disturbance, mood disturbance, and anxiety; I51.3 Intracardiac thrombosis, not elsewhere classified; E11.51 Type 2 diabetes mellitus with diabetic peripheral angiopathy without gangrene; E11.622 Type 2 diabetes mellitus with other skin ulcer; I25.10 Atherosclerotic heart disease of native coronary artery without angina pectoris; E86.0 Dehydration; I48.91 Unspecified atrial fibrillation; R47.02 Dysphasia; Z82.49 Family history of ischemic heart disease and other diseases of the circulatory system; Z95.1 Presence of aortocoronary bypass graft; Z95.2 Presence of prosthetic heart valve; Z83.3 Family history of diabetes mellitus; Z68.27 Body mass index [BMI] 27.0-27.9, adult; Z79.01 Long term (current) use of anticoagulants; Z79.84 Long term (current) use of oral hypoglycemic drugs; Z79.899 Other long term (current) drug therapy
CPT/HCPCS: 36415; 70498; 75635; 76881; 80048; 82962; 87070; 87077; 87186; 92523; 92610; 97110; 97112; 97116; 97162; 97166; 97530; 97535; J1815; Q0162; Q9967